=== PATIENT | male | born 2000 | race Asian ===

== ENCOUNTER 2018-09-22 20:09 | Emergency (ER) | payer MEDICAID, OTHER ==
[~2018-09-22] VITALS: Ht 170.2 cm; Wt 94.1 kg
[2018-09-22] MEDS ORDERED: FLUORESCEIN SODIUM 1 MG STRIP OD ONE (21:00)
[2018-09-22] MEDS ORDERED: PROPARACAINE HCL 0.5% 15 ML OPHTHALMIC SOLUTION OD ONE (21:00)
[2018-09-22 22:29] VITALS: BP 130/49
== END 2018-09-22 22:53 | disposition home or self-care (01) ==
LOC: EMS 20:11
DX: H57.89 Other specified disorders of eye and adnexa (principal); H53.8 Other visual disturbances